=== PATIENT | female | born 1985 | race Caucasian/White ===

== ENCOUNTER 2016-10-09 00:57 | Emergency (ER) | payer MEDICAID ==
[~2016-10-09] VITALS: Ht 170.2 cm; Wt 75.0 kg
[2016-10-09] MEDS ORDERED: SODIUM CHLORIDE 0.9% 1,000 ML IV ONE (03:17)
[2016-10-09] MEDS ORDERED: ONDANSETRON HCL 4MG/2ML VIAL IV STA (03:17)
[2016-10-09] MEDS ORDERED: CLINDAMYCIN 600 MG in DEXTROSE 5% WATER 50 ML IV ONE (03:30)
[2016-10-09] MEDS ORDERED: LEVETIRACETAM 500MG PREMIX 100 ML IV ONE (03:30)
[2016-10-09 03:42] LABS: HEMATOCRIT. 37.5 % (36.0-48.0); HEMOGLOBIN. 12.8 g/dL (12.0-16.0); MEAN CORPUSCULAR HEMOGLOBIN 29.7 pg (28.0-32.0); MEAN CORPUSCULAR VOLUME 87.1 fL (81.0-99.0); MEAN PLATELET VOLUME 10.1 fl (7.4-10.4); PLATELET 156 x1000/uL (130-400); RED CELL DISTRIBUTION WIDTH 15.6 % (11.6-14.6)
[2016-10-09 03:51] LABS: CARBON DIOXIDE 22 mEq/L (21-32); CHLORIDE 108 mEq/L (98-107)
[2016-10-09 04:23] VITALS: BP 95/52
[2016-10-09 05:03] LABS: BASOPHILS % 0.3 % (0.0-2.0); EOSINOPHILS % 0.6 % (0.0-5.0); LYMPHOCYTES % 7.1 % (20.0-50.0); MONOCYTES % 5.8 % (2.0-8.0); NEUTROPHILS % 86.2 % (40.0-76.0)
[2016-10-11] MEDS ORDERED: CALC-1 PO (03:39)
[2016-10-11] MEDS ORDERED: LAMO25TA71 PO (03:39)
[2016-10-11] MEDS ORDERED: CEPH500C2 PO (03:39)
[2016-10-11] MEDS ORDERED: MULT-1146 PO (03:39)
[2016-10-11] MEDS ORDERED: LORA1TAB PO (03:39)
[2016-10-13] MEDS ORDERED: KEPP500 PO (14:06)
== END 2016-10-09 05:30 | disposition home or self-care (01) ==
LOC: ER 00:57
DX: J02.9 Acute pharyngitis, unspecified (principal); R56.9 Unspecified convulsions; I63.9 Cerebral infarction, unspecified; Z91.14 Patient's other noncompliance with medication regimen; Z86.73 Personal history of transient ischemic attack (TIA), and cerebral infarction without residual deficits
CPT/HCPCS: 36415; 80053; 85025; 96365; 96367; 99284; J1953; J3490; J7030; Z7610; J7060

== ENCOUNTER 2022-06-06 08:54 | Emergency (ER) | payer MEDICARE, MEDICAID ==
[~2022-06-06] VITALS: Ht 368.3 cm; Wt 82.0 kg
[~2022-06-06 08:54] MED LIST: CALC-1 PO; CEPH500C2 PO; KEPP500 PO; LAMO25TA71 PO; LORA1TAB PO; MULT-1146 PO
[2022-06-06] MEDS ORDERED: LEVETIRACETAM 1000MG PREMIX 100 ML IV ONE (09:15)
[2022-06-06 10:16] VITALS: BP 132/78
[2022-06-06 11:23] LABS: BASOPHILS % 0.7 % (0.0-2.0); EOSINOPHILS % 0.9 % (0.0-5.0); HEMATOCRIT. 42.9 % (36.0-48.0); HEMOGLOBIN. 14.6 g/dL (12.0-16.0); LYMPHOCYTES % 13.4 % (20.0-50.0); MEAN CORPUSCULAR HEMOGLOBIN 30.4 pg (28.0-32.0); MEAN CORPUSCULAR VOLUME 89.3 fL (81.0-99.0); MEAN PLATELET VOLUME 9.9 fl (7.4-10.4); MONOCYTES % 7.2 % (2.0-8.0); NEUTROPHILS % 77.8 % (40.0-76.0); PLATELET 204 x1000/uL (130-400); RED CELL DISTRIBUTION WIDTH 15.5 % (11.6-14.6)
[2022-06-06 11:28] LABS: HCG SCREEN NEGATIVE
[2022-06-06 11:36] LABS: CHLORIDE 106 mEq/L (98-107)
[2022-06-06 11:42] LABS: ETHANOL BLOOD < 10 mg/dL
== END 2022-06-06 12:42 | disposition home or self-care (01) ==
LOC: ER 09:11
DX: R56.9 Unspecified convulsions (principal); R41.0 Disorientation, unspecified; R51.9 Headache, unspecified; Z86.73 Personal history of transient ischemic attack (TIA), and cerebral infarction without residual deficits; Z90.49 Acquired absence of other specified parts of digestive tract; Z79.899 Other long term (current) drug therapy
CPT/HCPCS: 36415; 70450; 80053; 80165; 80185; 80320; 84703; 85025; 99284; J1953; 80156; G0480